=== PATIENT | male | born 1970 | race Caucasian/White ===

== ENCOUNTER 2024-01-29 00:55 | Emergency (ER) | payer OTHER ==
[2024-01-29 01:22] VITALS: TEMP 98; BMI 28.8
[2024-01-29] MEDS ORDERED: ASPIRIN 81 MG CHEWABLE TABLETS ONE (01:57)
[2024-01-29] MEDS ORDERED: KETOROLAC TROMETHAMINE 30 MG/1 ML VIAL ONE (01:58)
[2024-01-29] MEDS: KETOROLAC TROMETHAMINE 30 MG/1 ML VIAL IVPUSH ONE (02:08)
[2024-01-29] MEDS: ASPIRIN 81 MG CHEWABLE TABLETS PO ONE (02:08)
[2024-01-29 02:18] LABS: BASO % 1.1 % (0-2.0); EOS % 3.1 % (0-4.5); HEMATOCRIT 41.2 % (35.4-49); HEMOGLOBIN 14.1 GM/dL (11.7-16.9); MCH 30.7 pg (25.7-33.7); MCHC 34.4 g/dl (32.0-35.9); MEAN CELL VOLUME 89.5 fl (80-96); MEAN PLT VOLUME 7.3 fl (7.5-11.1); MONO % 8.7 % (3.8-10.2); NEUT % 64.1 % (42.8-82.8); PLATELET COUNT 224 10^3/uL (134-434); WHITE BLOOD COUNT 8.1 K/mm3 (4.0-10.0)
[2024-01-29 02:28] LABS: INR 0.95 (0.83-1.09); PROTHROMBIN TIME (PATIENT) 10.7 SEC (9.7-13.0)
[2024-01-29 02:30] LABS: ACTIVATED PTT 28.7 SECONDS (25.2-36.5)
[2024-01-29 02:37] LABS: POTASSIUM 3.8 mmol/L (3.5-5.1)
[2024-01-29 02:39] LABS: CALCIUM 9.1 mg/dL (8.5-10.1)
[2024-01-29 02:40] LABS: ALBUMIN 4.3 g/dl (3.4-5.0); MAGNESIUM 2.1 mg/dL (1.8-2.4)
[2024-01-29 02:43] LABS: CREATININE 1.2 mg/dL (0.55-1.3)
[2024-01-29 02:44] LABS: BILIRUBIN,TOTAL 0.5 mg/dL (0.2-1); TOT PROT 7.5 g/dl (6.4-8.2)
[2024-01-29 03:23] VITALS: BP 155/86; PULSE 86; RESP 18
[2024-01-29] MEDS ORDERED: LIDOCAINE 1%/EPI 1:100000 (20 ML MULTI DOSE VIAL) ONE (04:45)
[2024-01-29] MEDS ORDERED: MIDAZOLAM HCL 5 MG/1 ML Single Dose Vial ONE ×2 (04:49→04:59)
== END 2024-01-29 03:24 | disposition home or self-care (01) ==
LOC: JER 00:55
PROC: 3E0333Z Introduction of Anti-inflammatory into Peripheral Vein, Percutaneous Approach (ICD-10-PCS; principal; 2024-01-29)
DX: M25.512 Pain in left shoulder (principal); M54.2 Cervicalgia; R06.02 Shortness of breath; M79.10 Myalgia, unspecified site
CPT/HCPCS: 36415; 71046-TC-FY; 80053; 82550; 83735; 84484; 85025; 85610; 85730; 93005; 93010; 99285-25

== ENCOUNTER 2024-02-19 22:45 | Emergency (ER) | payer OTHER ==
[~2024-02-19 22:45] MED LIST: LIDOCAINE PATCH REMOVAL MC SCH
[2024-02-19 22:52] VITALS: TEMP 98; BMI 28.5
[2024-02-20] MEDS ORDERED: LIDOCAINE 4% PATCH TP ONE
[2024-02-20] MEDS ORDERED: ACETAMINOPHEN 325 MG TABLET (FP) ONE
[2024-02-20] MEDS: ACETAMINOPHEN 500 MG TABLET (FP) PO ONE (00:33)
[2024-02-20] MEDS: LIDOCAINE 4% PATCH TP ONE (00:33)
[2024-02-20 02:02] VITALS: BP 140/90; PULSE 86; RESP 18
== END 2024-02-20 02:02 | disposition home or self-care (01) ==
LOC: JER 22:45
DX: R07.81 Pleurodynia (principal); M54.50 Low back pain, unspecified; W01.198A Fall on same level from slipping, tripping and stumbling with subsequent striking against other object, initial encounter; Y93.39 Activity, other involving climbing, rappelling and jumping off
CPT/HCPCS: 71046-TC-FY; 71101-TC-LT-FY; 99283-25